=== PATIENT | male | born 1945 | race Caucasian/White ===

== ENCOUNTER → 2017-07-07 | Outpatient (CLI) | payer BC, OTHER ==
[~2017-07-07] MED LIST: ALPRAZOLAM 0.50.5 M1 PO; AMBEREN; AMBIEN 10 MG TA10 MG SL; AMBIEN 5 MG TABL5 M1 PO; ANALPRAM HC 2.559 ML RC; ARICEPT 5 MG TAB5 MG PO; ARICEPT10 MG PO; ASPIR 8181 MG PO; B-COMPLEX 100400 MC1; CARNITINE250 MG PO; CENTRUM SILVER1 EAC4 PO; CERTAGEN SENIOR PO; CIPRO500 MG PO; COLACE 100 MG100 MG PO; COLACE100 MG PO; COREG3.125 MG PO; COUMADIN 5 MG TA5 M1 PO; CRESTOR10 MG PO; CRESTOR40 MG PO; DEPAKOTE250 MG PO; EDLUAR10 MG SL; ENOXAPARIN100 MG/1 M SC; FAMOTIDINE PO; FENOFIBRATE160 MG PO; FISH OIL 1,0001 EAC5; FISHOIL; FLOMAX PO; FLOMAX0.4 MG PO; FOLIC ACID; GLYCOLAX POWDER17 G1 PO; ICAPS TABLET1 EACH PO; KLOR-CON 1010 MEQ PO; LAMICTAL 25 MG25 M1 PO; LAMICTAL100 MG PO; LASIX 40 MG TAB40 M2 PO; LISINOPRIL10 MG PO; LISINOPRIL5 MG PO; NEURONTIN 300300 M1 PO; NORVASC2.5 MG PO; NORVASC5 MG PO; OXCARBAZEPINE300 M1 PO; OXCARBAZEPINE600 MG PO; PAMELOR25 MG PO; PLAVIX 75 MG TA75 M1 PO; POTASSIUM20 PO; PRINZIDE 20-251 EACH PO; PROTONIX40 M1 PO; RISPERDAL0.25 MG PO; SENNA PO; SEROQUEL 100 M100 M1 PER TUBE; SEROQUEL 25 MG25 MG PO; SEROQUEL 50 MG50 M2 PO; SEROQUEL XR150 M1 PO; SEROQUEL XR200 MG PO; SIMVASTATIN80 MG PO; TENORETIC 1001 EACH PO; TRICOR; TRILEPTAL 300300 MG PO; TYLENOL325 MG PO; VALIUM5 MG PO; VITAMIN D 5050000 I1 PO; VITAMIN D1000 UNI1 PO; VITAMIN D400 UNI1; XANAX 0.25 MG0.25 MG PO; XIFAXAN550 M1 PO; ZOCOR 20 MG TAB20 M1
== END ==
LOC: NUC 06-06 10:43
DX: I25.10 Atherosclerotic heart disease of native coronary artery without angina pectoris (principal)

== ENCOUNTER → 2018-02-19 | Outpatient (CLI) | payer BC, OTHER | LOC: MRI 02-15 13:56 | DX: G31.9 Degenerative disease of nervous system, unspecified (principal); G40.219 Localization-related (focal) (partial) symptomatic epilepsy and epileptic syndromes with complex partial seizures, intractable, without status epilepticus; F02.80 Dementia in other diseases classified elsewhere, unspecified severity, without behavioral disturbance, psychotic disturbance, mood disturbance, and anxiety; R26.0 Ataxic gait ==

== ENCOUNTER 2020-09-28 09:55 | Emergency (ER) | payer BC, OTHER ==
[~2020-09-28] VITALS: Ht 160 cm; Wt 84.4 kg
--- NOTE | ~2020-09-28 | EMS ---
[facility] [address] [place] [address] EMS Patient Care Report Name: LM RED Room #: DEP ROSALIO Latham#: [id number] Admission: 09/28/20 Attend Phys: Discharge: 09/28/20 Date of : 43 Report #: [id number] THIS REPORT FOR: //name// Report Transmitted: 09/30/2020 07:40 EMS Care Summary [place], [place]/[facility] Incident [id number] @ 09/28/2020 09:11 Incident Location [address] [place] [address] Patient LM RED Male, 75 Years 1945 Patient Address [address] [place] [address] Patient History Dementia,Hypertension (HTN),Seizures,Cardiac - Stent,Myocardial Infarction (DC), Patient Allergies Other drug allergy, Patient Medications Aspirin, Clopidogrel, Amlodipine, Lamictal, Disposition Transported No Lights/[place] Dis[place] [facility] [place]IENT WAS FOUND WALKING AROUND THE FRONT ROOM AT HOME WITH FIRST RESPONDERS ON SCENE. THE PATIENT'S STATES THE PATIENT HAS NOT BEEN SLEEPING WELL THE PAST THREE NIGHTS AND DID NOT SLEEP AT ALL LAST NIGHT AND HAS BEEN WALKING AROUND ACTING STRANGE THIS MORNING WITH INVOLUNTARY MUSCLE TWITCHING THAT IS NOT NORMAL FOR HIM. THE PATIENT IS ALERT AND ORIENTED x4 BUT WILL EXHIBIT STRANGE BEHAVIOR LIKE GOING TO THE FREEZER TO RUMMAGE AROUND THEN COMING BACK AND RUMMAGING UNDER THE COUCH CUSHIONS FOR NO PARTICULAR REASON. A [facility] [address] [place] [address] EMS Patient Care Report Name: LM RED [id number] Admission: 09/28/20 Attend Phys: Discharge: 09/28/20 Date of : 43 Report #: [id number] BLOOD GLUCOSE OF 124 WAS OBTAINED. NO CHANGES IN THE PATIENT'S CONDITION DURING TRANSPORT. THE PATIENT WAS MOVED TO BED 8 AT THE [facility] ER AND LEFT WITH THE SIDE RAILS UP AND LOCKED. CARE WAS TRANSFERRED TO THE ER NURSING STAFF. Initial Vitals @PTAP: 60,BP: 126/70, @09:32P: 61,R: 14,BP: 146/72,Pain: 0/10,GCS: 14,Glucose: 124,SpO2: 94,Revised Trauma: 12, @09:41P: 60,R: 14,BP: 139/74,Pain: 0/10,GCS: 14,CO: 0,SpO2: 98,Revised Trauma: 12, Assessments @09:21MENTAL:Other,Person Oriented,Event Oriented,Place Oriented,Time Oriented,SKIN:No Abnormalities,HEENT:Head/Face: No Abnormalities,Eyes: No Abnormalities,Neck/Airway: No Abnormalities,LUNG SOUNDS:General: No Abnormalities,Left Upper: No Abnormalities,Right Upper: No Abnormalities,Left Lower: No Abnormalities,Right Lower: No Abnormalities,ABDOMEN:General: No Abnormalities,Left Upper: No Abnormalities,Right Upper: No Abnormalities,Left Lower: No Abnormalities,Right Lower: No Abnormalities,PELVIS//GI:No Abnormalities,EXTREMITIES:Left Arm: No Abnormalities,Right Arm: No Abnormalities,Left Leg: No Abnormalities,Right Leg: No Abnormalities,PULSE:Radial: 2+ Normal,NEURO:No Abnormalities, Impression Behavioral/psychiatric episode Procedures @09:21ALS AssessmentResponse: Unchanged Timeline [employer] 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,BP: 126/70 M,PULSE: 60,RR: R,SPO2: Ox,ETCO2: ,BG: ,PAIN: ,GCS: , 09:09,Call Received 09:09,Dispatch Notified 09:11,Dispatched 09:12,En Route 09:20,On Scene 09:21,At Patient 09:21,ALS Assessment,Response: Unchanged 09:32,BP: 146/72 M,PULSE: 61,RR: 14 R,SPO2: 94 Ox,ETCO2: ,B,PAIN: 0,GCS: 14, 09:35,Depart Scene 09:41,BP: 139/74 M,PULSE: 60,RR: 14 R,SPO2: 98 Ox,ETCO2: ,BG: ,PAIN: 0,GCS: 14, 09:48,At Destination 10:04,Call Closed Disclaimer [facility] [address] [place] [address] EMS Patient Care Report Name: NEDALM Room #: DEP Yeison#: [id number] Admission: 09/28/20 Attend Phys: Discharge: 09/28/20 Date of : 43 Report #: [id number] v1.1 Copyright 2020 [employer] This EMS Care Summary contains data elements from the applicable legal record (which may be displayed differently). It is designed to provide pertinent information for the following purposes: continuity of care, clinical quality, and state data reporting. The complete legal record is available to ED staff and administrators of the receiving hospital in [employer]'s Patient Tracker. All data is provided "as is."
[2020-09-28] MEDS ORDERED: CARVEDILOL12.5 MG PO (10:14)
[2020-09-28] MEDS ORDERED: CLOPIDOGREL75 MG PO (10:15)
[2020-09-28] MEDS ORDERED: MEMANTINE HCL10 MG PO (10:15)
[2020-09-28] MEDS ORDERED: AMLODIPINE BESY10 MG PO (10:15)
[2020-09-28] MEDS ORDERED: LAMOTRIGINE150 MG PO (10:16)
[2020-09-28] MEDS ORDERED: ATORVASTATIN CA20 MG PO (10:16)
[2020-09-28 10:36] LABS: URINE BILIRUBIN NEGATIVE (Negative); URINE BLOOD NEGATIVE (Negative); URINE CLARITY CLEAR; URINE COLOR YELLOW; URINE GLUCOSE-RANDOM* NEGATIVE (Negative); URINE KETONES NEGATIVE (Negative); URINE LEUKOCYTES-REFLEX NEGATIVE (Negative); URINE NITRITE-REFLEX NEGATIVE (Negative); URINE PROTEIN (DIPSTICK) TRACE (Negative); URINE UROBILINOGEN 0.2 E.U./dl (0.2-1.0)
[2020-09-28 10:38] LABS: ABSOLUTE NEUTROPHILS 5.1 thou/uL (1.4-8.2); BASOPHILS 0.2 % (0.0-2.0); EOSINOPHILS 4.1 % (0.0-3.0); HEMATOCRIT 42.8 % (42.0-52.0); HEMOGLOBIN 14.3 gm/dL (14.0-18.0); LYMPHOCYTES 11.4 % (24.0-44.0); MCH 30.5 pg (26.0-34.0); MCHC 33.4 g/dL (28.0-37.0); MCV 91.6 fL (80.0-100.0); MONOCYTES 7.9 % (1.0-8.0); PLATELET COUNT 152 thou/uL (150-400); POLYS 76.4 % (36.0-66.0); RBC 4.67 mil/uL (4.50-6.00); RDW 13.3 % (10.5-14.5); WBC 6.7 thou/uL (4.0-11.0)
[2020-09-28 10:52] LABS: CALCIUM 9.3 mg/dL (8.5-10.1); CREATININE 1.2 mg/dL (0.7-1.3)
[2020-09-28 10:55] LABS: POTASSIUM 4.5 mmol/L (3.5-5.1)
[2020-09-28 10:57] LABS: ALBUMIN 4.5 g/dL (3.4-5.0); MAGNESIUM 2.1 mg/dL (1.8-2.4); TOTAL BILIRUBIN 0.4 mg/dL (0.2-1.0); TOTAL PROTEIN 7.5 g/dL (6.4-8.2)
--- NOTE | 2020-09-28 12:28 | EKG ---
[facility] [place] [address] ELECTROCARDIOGRAM REPORT Name: LM RED Room #: [facility].#: [id number] Admission: 09/28/20 Attend Phys: Discharge: Date of : 43 Report #: [id number] THIS REPORT FOR: cc: Ariel Hernandez MD, Eric K. MD Santiago, Patrick MD 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
[2020-09-28 13:10] VITALS: BP 119/55
== END 2020-09-28 13:18 | disposition home or self-care (01) ==
LOC: ER 09:55
PROVIDERS: Emergency Medicine
DX: R41.0 Disorientation, unspecified (principal); R25.1 Tremor, unspecified; I10 Essential (primary) hypertension; I25.2 Old myocardial infarction; G31.83 Neurocognitive disorder with Lewy bodies; F02.80 Dementia in other diseases classified elsewhere, unspecified severity, without behavioral disturbance, psychotic disturbance, mood disturbance, and anxiety; Z95.5 Presence of coronary angioplasty implant and graft; Z79.899 Other long term (current) drug therapy; Z79.82 Long term (current) use of aspirin; Z88.8 Allergy status to other drugs, medicaments and biological substances